=== PATIENT | male | born 1985 | race Caucasian/White ===

== ENCOUNTER 2017-03-21 03:39 | Emergency (ER) | payer SELFPAY ==
[~2017-03-21] VITALS: Ht 177.8 cm; Wt 67.3 kg
[2017-03-21 04:35] VITALS: BP 142/82
== END 2017-03-21 04:37 | disposition home or self-care (01) ==
LOC: EDBD 03:41 → EMS 03:41
DX: F10.129 Alcohol abuse with intoxication, unspecified (principal); Y90.9 Presence of alcohol in blood, level not specified
CPT/HCPCS: 99283